=== PATIENT | female | born 1975 | race Caucasian/White ===

== ENCOUNTER → 2018-11-20 | Outpatient (CLI) | payer OTHER, SELFPAY ==
[2018-09-26 08:03] VITALS: BMI 21.0
--- NOTE | 2018-11-20 07:03 | BI_ITS ---
MAMMOGRAPHY - BILATERAL SCREENING REASON FOR EXAM: Female, 43 years old. Routine annual screening examination. PERTINENT HISTORY: Non-contributory. Right breast discharge during compression examination. TECHNIQUE: Digital bilateral breast carlos (3D mammographic acquisition) in the CC and MLO projections. 2-D mediolateral oblique (MLO) and craniocaudad (CC) views of both breasts were obtained. CAD: Full Field Digital Mammography with Computer Added Detection was performed. COMPARISON: None. Baseline examination. FINDINGS: Breast Composition: The breasts are extremely dense, which lowers the sensitivity of mammography. There are no dominant masses or suspicious calcifications. Benign appearing bilateral axillary lymph nodes. No other significant abnormalities are identified. BI/SCREEN MAMM (CAD) W/CARLOS BILAT IMPRESSION: Negative screening mammogram. Yearly followup mammogram recommended. (A) ASSESSMENT CATEGORY: BIRADS Category 2: Benign. A letter regarding these results will be sent to the patient by the facility within 30 days. Approximately 10% of breast cancers are not detected by mammography. A normal mammogram should not delay biopsy of a clinically suspicious abnormality. [id number] Electronically Signed: Judd Batista, at 10:53 EDT , Service support ,
== END | disposition home or self-care (01) ==
PROVIDERS: Family Provider Family Medicine; PCP Family Medicine; Referring Provider Nurse Practitioner Women's Health; Visit Provider Nurse Practitioner Women's Health
DX: Z12.31 Encounter for screening mammogram for malignant neoplasm of breast (principal)
CPT/HCPCS: 77063; 77067

== ENCOUNTER → 2018-11-23 | Outpatient (CLI) | payer OTHER, SELFPAY ==
[2018-09-26 08:03] VITALS: BMI 21.0
[2018-11-23 07:28] LABS: Prolactin 8.8 ng/mL
== END | disposition home or self-care (01) ==
LOC: LAB 06:46
PROVIDERS: Family Provider Family Medicine; PCP Family Medicine; Referring Provider Nurse Practitioner Women's Health; Visit Provider Nurse Practitioner Women's Health
DX: N64.52 Nipple discharge (principal)
CPT/HCPCS: 36415; 84146